=== PATIENT | male | born 1990 | race African-American/Black ===

== ENCOUNTER 2017-01-20 06:28 | Emergency (ER) | payer MEDICAID ==
[~2017-01-20] VITALS: Ht 172.7 cm; Wt 73.0 kg
[2017-01-20] MEDS ORDERED: SODIUM CHLORIDE 0.9% 1,000 ML IV ONE (06:50)
[2017-01-20] MEDS ORDERED: ONDANSETRON HCL 4MG/2ML VIAL IV STA (06:50)
[2017-01-20] MEDS ORDERED: FAMOTIDINE 20MG/2ML VIAL IV STA (06:50)
[2017-01-20 07:08] LABS: BASOPHILS % 0.4 % (0.0-2.0); EOSINOPHILS % 1.4 % (0.0-5.0); HEMATOCRIT. 43.9 % (42.0-52.0); HEMOGLOBIN. 14.5 g/dL (14.0-18.0); LYMPHOCYTES % 15.4 % (20.0-50.0); MEAN CORPUSCULAR HEMOGLOBIN 28.5 pg (28.0-32.0); MEAN CORPUSCULAR VOLUME 86.6 fL (80.0-94.0); MEAN PLATELET VOLUME 8.4 fl (7.4-10.4); MONOCYTES % 8.8 % (2.0-8.0); PLATELET 237 x1000/uL (130-400); RED BLOOD CELL COUNT 5.07 mill/uL (4.7-6.1); RED CELL DISTRIBUTION WIDTH 14.5 % (11.6-14.6)
[2017-01-20 07:24] LABS: CARBON DIOXIDE 23 mEq/L (21-32); CHLORIDE 102 mEq/L (98-107)
[2017-01-20 07:31] LABS: INR 1.1; PARTIAL THROMBOPLASTIN TIME 29.6 sec (23.4-31.0)
[2017-01-20] MEDS ORDERED: VISCOUS LIDOCAINE 2% 15 ML UDC MM STA (08:39)
[2017-01-20] MEDS ORDERED: MAGNESIUM/ALUMINUM HYDROXIDE/SIMETHICONE 30ML UDC PO ONE (08:45)
[2017-01-20 08:51] VITALS: BP 120/59
== END 2017-01-20 09:52 | disposition home or self-care (01) ==
LOC: ER 07:52
DX: R10.13 Epigastric pain (principal); R11.0 Nausea; I10 Essential (primary) hypertension; F17.200 Nicotine dependence, unspecified, uncomplicated
CPT/HCPCS: 36415; 80053; 83690; 85025; 85610; 85730; 96361; 96374; 96375; 99284; J2405; J3490; J7030; Z7610

== ENCOUNTER 2018-05-29 19:05 | Emergency (ER) | payer MEDICAID ==
[~2018-05-29] VITALS: Ht 172.7 cm; Wt 78.0 kg
[2018-05-29] MEDS ORDERED: SODIUM CHLORIDE 0.9% 1,000 ML IV ONE (20:47)
[2018-05-29] MEDS ORDERED: KETOROLAC 30MG/ML VIAL IV STA (20:47)
[2018-05-29] MEDS ORDERED: ONDANSETRON HCL 4MG/2ML INJ IV STA (20:47)
[2018-05-29] MEDS ORDERED: MORPHINE SULFATE 10 MG/ML CPJ IV ONE (21:00)
[2018-05-29 22:17] LABS: BASOPHILS % 0.2 % (0.0-2.0); EOSINOPHILS % 0.3 % (0.0-5.0); HEMATOCRIT. 40.3 % (42.0-52.0); HEMOGLOBIN. 13.3 g/dL (14.0-18.0); LYMPHOCYTES % 13.2 % (20.0-50.0); MEAN CORPUSCULAR HEMOGLOBIN 28.6 pg (28.0-32.0); MEAN CORPUSCULAR VOLUME 86.3 fL (80.0-94.0); MEAN PLATELET VOLUME 9.1 fl (7.4-10.4); MONOCYTES % 10.4 % (2.0-8.0); NEUTROPHILS % 75.9 % (40.0-76.0); PLATELET 205 x1000/uL (130-400); RED BLOOD CELL COUNT 4.67 mill/uL (4.7-6.1); RED CELL DISTRIBUTION WIDTH 14.8 % (11.6-14.6)
[2018-05-29 22:18] LABS: CHLORIDE 100 mEq/L (98-107)
[2018-05-29 22:23] LABS: ETHANOL BLOOD < 10 mg/dL
[2018-05-29 22:39] LABS: CREATINE KINASE 3946 IU/L (39-308)
[2018-05-30 06:00] VITALS: BP 122/74
== END 2018-05-30 06:26 | disposition home or self-care (01) ==
LOC: ER 19:05
DX: S02.82XA Fracture of other specified skull and facial bones, left side, initial encounter for closed fracture (principal); S20.212A Contusion of left front wall of thorax, initial encounter; S00.83XA Contusion of other part of head, initial encounter; W27.8XXA Contact with other nonpowered hand tool, initial encounter; Y93.01 Activity, walking, marching and hiking; Y92.480 Sidewalk as the place of occurrence of the external cause; R03.0 Elevated blood-pressure reading, without diagnosis of hypertension
CPT/HCPCS: 36415; 70450; 70486; 71045; 71250; 74176; 80053; 82550; 84443; 85025; 85610; 93005; 96374; 96375; 99284; G0482; J1885; J2270; J2405; J7030

== ENCOUNTER 2022-03-19 22:49 | Emergency (ER) | payer MEDICAID ==
[~2022-03-19] VITALS: Ht 172.7 cm; Wt 78.4 kg
[2022-03-20] MEDS ORDERED: TETANUS, DIPHTHERIA, PERTUSSIS VAC/PF 0.5ML (>10YR OLD) IM ONE (01:15)
[2022-03-20 02:02] VITALS: BP 122/78
== END 2022-03-20 02:04 | disposition home or self-care (01) ==
LOC: ER 22:49
DX: S51.811A Laceration without foreign body of right forearm, initial encounter (principal); X58.XXXA Exposure to other specified factors, initial encounter; Y93.9 Activity, unspecified; Y92.89 Other specified places as the place of occurrence of the external cause; Y99.8 Other external cause status
CPT/HCPCS: 90471; 90715; 99283